=== PATIENT | male | born 1975 | race Hispanic/Latino ===

== ENCOUNTER → 2019-09-12 | Outpatient (CLI) | payer OTHER ==
--- NOTE | 2019-09-17 08:33 | Diagnostic Imaging Report ---
#[id number] - [id number] #MALE BILATERAL DIGITAL DIAGNOSTIC MAMMOGRAM WITH CAD: 09/12/2019 CLINICAL: Focal pain left breast. No prior exams were available for comparison. Current study was also evaluated with a Computer Aided Detection (CAD) system. There are benign lymph nodes in the left breast. No significant masses, calcifications, or other findings are seen in either breast. IMPRESSION: BENIGN There is no mammographic evidence of malignancy. Follow-up with ACR/ACS guidelines. The patient will be notified by letter of the results. KAM castellanos/nir:09/16/2019 13:28:05 Hoist Operator: Kourtney MOYER)(Jessie), [facility] letter sent: Normal Exam Mammogram BI-RADS: 2 Benign
== END ==
LOC: MAMMO 14:03
PROVIDERS: ATTEND Family Medicine
DX: N63.20 Unspecified lump in the left breast, unspecified quadrant (principal); N64.4 Mastodynia
CPT/HCPCS: 77066

== ENCOUNTER → 2019-12-12 | Outpatient (CLI) | payer OTHER | LOC: CT 14:39 | PROVIDERS: ATTEND Family Medicine | DX: R20.2 Paresthesia of skin (principal) | CPT/HCPCS: 70450 ==

== ENCOUNTER → 2020-03-05 | Outpatient (CLI) | payer OTHER | LOC: US 15:08 | PROVIDERS: ATTEND Family Medicine | DX: R10.11 Right upper quadrant pain (principal) | CPT/HCPCS: 76700 ==

== ENCOUNTER → 2023-11-27 | Outpatient (REF) | payer BC ==
[~2023-11-27] MED LIST: IOPAMIDOL 370 MG/ML 100 ML INFUS..BTL INJ ONE; METOPROLOL TARTRATE 25 MG TAB ONE; METOPROLOL TARTRATE INJ 1 MG/ML VIAL ONE; NITROGLYCERIN 0.4 MG SUBL ONE; SODIUM CHLORIDE 0.9% 100 ML ONE
[2023-11-27 10:58] LABS: CREATININE, SERUM 1.21 mg/dL (0.72-1.25)
== END ==
LOC: CT 09:48
PROVIDERS: ATTEND Internal Medicine Cardiovascular Disease
DX: R07.9 Chest pain, unspecified (principal); R94.39 Abnormal result of other cardiovascular function study
CPT/HCPCS: 36415; 75574; 75580; 82565; 84520; J7050; Q9967